=== PATIENT | male | born 1990 | race Caucasian/White ===

== ENCOUNTER 2021-04-16 19:25 | Emergency (ER) | payer OTHER ==
[2021-04-16] MEDS ORDERED: BLEPH-105 ML EYERT (20:00)
== END 2021-04-16 20:23 | disposition home or self-care (01) ==
LOC: FER 19:25
DX: S05.01XA Injury of conjunctiva and corneal abrasion without foreign body, right eye, initial encounter (principal); W22.8XXA Striking against or struck by other objects, initial encounter; Y92.89 Other specified places as the place of occurrence of the external cause; Y99.0 Civilian activity done for income or pay
CPT/HCPCS: 99283